=== PATIENT | female | born 1965 | race Caucasian/White ===

== ENCOUNTER 2016-12-26 22:41 | Emergency (ER) | payer BC ==
--- NOTE | ~2016-12-26 | CT4 ---
[facility] A Service of [facility] & [facility] RADIOLOGY TEXT RESULTS PATIENT: SHIRLEY HOLLINGSWORTH LOCATION: [facility] : 69 UNIT #: [id number] AGE: [address]: Trey Amaya DO SEX: F ORDER DR: [id number] [facility] [address] [place], [place] [address] [id number] MR#: [id number] Acc #: [id number] NAME: SHIRLEY HOLLINGSWORTH : 1965 SEX: F STUDY DATE/TIME: 12/27/2016 00:44 UNIT: [facility] ROOM: STUDY DESCRIPTION: CT Abd and Pelv Wo Cont Attending Physician: Trey Amaya D.O. Ordering Physician: Trey Amaya D.O. Primary Care Physician: [facility] MEDICAL IMAGING REPORT This report is preliminary unless electronic signature is present EXAM Abdomen and pelvis CT, 12/27 at 00:44. INDICATIONS Abdominal pain and back pain that started today. History of kidney stones. TECHNIQUE Axial noncontrast images were obtained through the abdomen and pelvis. Multiplanar reformats were obtained. Comparison made with 02/07/2014. This CT exam was performed with one or more of the following radiation dose reduction techniques: automatic exposure control, adjustment of mA and/or kV according to patient size, and iterative reconstruction. FINDINGS Abdomen: Lung bases are clear. Gallbladder is within normal limits. There are small nonobstructing stones in both kidneys. The largest is in the right lower kidney measuring about 4 mm in size. No ureteral stones are seen. There is no hydronephrosis. Unenhanced solid organs are otherwise normal. No free fluid or adenopathy is seen. The unopacified GI tract, including the appendix, is normal. Pelvis: The unopacified GI tract is normal. Uterus is surgically absent. There are no lower ureteral stones. The bladder is decompressed, but grossly normal. There are some phleboliths in the pelvis, which are unchanged. There is degenerative disc disease in the lower lumbar spine. IMPRESSION 1. Bilateral nonobstructing renal stones. No ureteral stones are seen and there is no hydronephrosis. 2. Normal unopacified GI tract, including the appendix. 3. Hysterectomy. [facility] A Service of [facility] RADIOLOGY TEXT RESULTS PATIENT: SHIRLEY HOLLINGSWORTH LOCATION: [facility] : [birth year] UNIT #: [id number] AGE: [address]: Trey Amaya DO SEX: F ORDER DR: Dictated by... Mauricio Shemran Jr., M.D. THIS IS AN ELECTRONICALLY VERIFIED REPORT Mauricio Sherman Jr., M.D. at 12/27/2016 7:18 PM KALINA/michael TD: 12/27/2016 06:18 JOB #: [id number] MEDICAL IMAGING REPORT Page 1 of 1 COPY
[~2016-12-26 22:41] MED LIST: ADVAIR; ALBUTEROL17 GM INH; ALLERGY25 MG PO; BENZONATATE PO; CHOLESTEROL MED; CIPRO PO; COATED ASPIRIN325 M1 PO; DICLOFENAC PO; FLEXERIL PO; FLEXERIL10 M1 PO; FLEXERIL10 MG PO; FLUOXETINE HCL25 GM PO; IMITREX PO; LEVAQUIN750 M1 PO; LEVOTHROID75 MCG PO; LIPITOR20 MG PO; LISINOPRIL10 MG PO; LORTAB 7.5-5001 TAB PO; LOVENOX100 MG/ML INJ; MEDROL PO; NAPROSYN500 MG PO; NAPROXEN PO; NAPROXEN500 M1 PO; NORCO1 TAB 10/3 PO; NUCYNTA ER50 MG PO; PAXIL PO; PAXIL40 MG; PAXIL40 MG PO; PERCOCET PO; PHENERGAN12.5 MG/SU RC; PHENERGAN25 M1 PO; PHENERGAN25 MG PO; PRAVASTATIN SOD40 MG PO; PREDNISONE PO; PREDNISONE10 MG/DOSE PO; PRILOSEC20 MG PO; PROZAC PO; QUDEXY XR100 MG PO; ROBITUSSIN ALL118 ML PO; SIMVASTATIN40 MG PO; SUMATRIPTAN SUC50 MG PO; SYNTHROID PO; SYNTHROID137 MCG PO; SYNTHROID88 MCG PO; TAMIFLU75 M1 PO; TESSALON200 MG PO; TOPAMAX PO; TOPAMAX50 MG PO; TRAMADOL HCL50 M1 PO; TUSSIONEX PENN473 ML PO; TYLENOL325 M1 PO; TYLOX 5/500 CAP1 CAP PO; VICODIN 5/1 TAB 5/50 PO; ZITHROMAX PO; ZOCOR PO; ZOLOFT PO; [UNRECOGNIZED DRUG - REMARK]
[2016-12-26 23:35] LABS: URINE SOURCE CLEAN CATCH
[2016-12-26 23:38] LABS: BASOPHIL% 0.5 % (0-2.5); EOSINOPHIL# 0.2 X10e3 (0-0.7); EOSINOPHIL% 1.6 % (0.0-7.0); HEMATOCRIT 39.4 % (35.0-45.0); HEMOGLOBIN 12.9 gm/dL (12.0-16.0); LYMPHOCYTE# 2.3 X10e3 (1.0-3.5); MEAN CELL VOLUME 86.2 FL (83-96); MEAN CORPUSCULAR HEMOGLOBIN 28.2 PG (28-34); MEAN CORPUSCULAR HGB CONC 32.8 g/dL (30-36); MEAN PLATELET VOLUME 9.6 FL (6.5-11.5); MONOCYTE# 0.7 X10e3 (0-1.0); MONOCYTE% 7.2 % (3.0-12.0); NEUTROPHIL# 6.5 X10e3 (1.5-7.1); NEUTROPHIL% 66.7 % (40-75); PLATELET COUNT 159 X10e3 (140-420); RED BLOOD COUNT 4.57 X10e (3.90-5.30); RED CELL DISTRIBUTION WIDTH 14.4 % (11.0-15.5); WHITE BLOOD COUNT 9.8 X10e3 (4.0-10.5)
[2016-12-26 23:39] LABS: DIFF IND NO
[2016-12-26 23:41] LABS: URINE APPEARANCE TURBID; URINE BILIRUBIN NEG (NEG); URINE BLOOD 3+ (NEG); URINE COLOR YELLOW; URINE GLUCOSE NEG (NEG); URINE KETONE NEG (NEG); URINE LEUKOCYTE ESTERASE 3+ (NEG); URINE NITRATE NEG (NEG); URINE PROTEIN 1+ (NEG); URINE SPECIFIC GRAVITY 1.017 (1.003-1.035); URINE UROBILINOGEN 0.2 MG/DL (NEG)
[2016-12-26 23:44] LABS: CULTURE INDICATED? YES; U HYALINE CASTS AUWI 0-2 /[LPF]; URBCS1 AUWI INNUM /[HPF] (0-2); URINE BACTERIA AUWI 1+ (NEGATIVE); URINE SQUAMOUS EPITHELIAL CELL OCC /[HPF]; UWBCS1 AUWI INNUM (0-5)
[2016-12-27 00:04] LABS: BILIRUBIN, DIRECT 0.2 mg/dL (0.0-0.2); BILIRUBIN,INDIRECT 0.5 mg/dL (0.0-0.9); BILIRUBIN,TOTAL 0.7 mg/dL (0.2-2.0); BUN/CREATININE RATIO 25.55; CALCIUM SERUM 9.1 mg/dL (8.4-10.2); CREATININE SERUM 0.9 mg/dL (0.6-1.4); GLOM FILT RATE Estimated 75.1 mL/min (>60); POTASSIUM 4.1 mmol/L (3.5-5.1); PROTEIN TOTAL SERUM 7.7 g/dL (6.0-8.3)
[2016-12-29 10:55] LABS: CHLAMYDIA TRACH Not Detected (Not Detected); N GONOR Not Detected (Not Detected)
== END 2016-12-27 03:20 | disposition home or self-care (01) ==
LOC: CED 22:41
PROVIDERS: Emergency Medicine
DX: R10.9 Unspecified abdominal pain (principal); Z98.890 Other specified postprocedural states
CPT/HCPCS: 36415; 74176; 80048; 80076; 81003; 83690; 85025; 87086; 87088; 87186; 87491; 87591; 87808; 87905; 96365; 96375; 99284; J0696; J2270; J2405